=== PATIENT | male | born 1960 | race Caucasian/White ===

== ENCOUNTER 2019-03-07 04:52 | Inpatient (IN) ==
--- NOTE | 2019-02-01 16:16 | PAT Medication Instructions ---
Medication Instructions Date of Service February 01, 2019 Home Medications garlic 1,000 mg PO DAILY 01/29/19 [History Confirmed 01/29/19] glucosamine-chondroitin [Osteo Bi-Flex] 1 tab PO DAILY 01/29/19 [History Confirmed 01/29/19] milk thistle 500 mg PO DAILY 01/29/19 [History Confirmed 01/29/19] multivitamin 1 tab PO DAILY 01/29/19 [History Confirmed 01/29/19] omega 6-zcy-zbo-fish oil [[place]-3] 1 cap PO DAILY 01/29/19 [History Confirmed 01/29/19] prednisone 5 mg PO UD 01/29/19 [History Confirmed 01/29/19] pseudoephedrine HCl [Sudafed] 30 mg PO DAILY 01/29/19 [History Confirmed 01/29/19] zinc 50 mg PO DAILY 01/29/19 [History Confirmed 01/29/19] Continue as directed prednisone 5 mg PO UD 01/29/19 [History Confirmed 01/29/19] STOP taking 2 weeks before surgery (or as soon as possible if surgery is within 2 weeks) garlic 1,000 mg PO DAILY 01/29/19 [History Confirmed 01/29/19] glucosamine-chondroitin [Osteo Bi-Flex] 1 tab PO DAILY 01/29/19 [History Confirmed 01/29/19] milk thistle 500 mg PO DAILY 01/29/19 [History Confirmed 01/29/19] omega 2-sjd-fbq-fish oil [[place]-3] 1 cap PO DAILY 01/29/19 [History Confirmed 01/29/19] DO NOT take the morning of surgery multivitamin 1 tab PO DAILY 01/29/19 [History Confirmed 01/29/19] pseudoephedrine HCl [Sudafed] 30 mg PO DAILY 01/29/19 [History Confirmed 01/29/19] zinc 50 mg PO DAILY 01/29/19 [History Confirmed 01/29/19] Other Notes If you have any questions please call us at [phone] or [phone] or [phone] or [phone]
--- NOTE | 2019-02-04 13:38 | Anesthesiology Consultation ---
Date of Service February 04, 2019 Assessment & Plan (1) Encounter for pre-operative examination: - Awaiting review preop testing (labs, EKG, CXR). - Awaiting surgeon-ordered PCP preop evaluation scheduled ~02/06 (Dr. Roberts). Chart Review Chart Review: Patient seen in Pre Admission Testing Teaching & Discussion Pre-Anesthesia Teaching/Discussion Notes: Instructed NPO after midnight before surgery,except medications with 15 cc of water. Medication instructions provided according to the PAT guidelines. History Surgery Operation Date: 03/07/19 07:15 Proposed Procedures p Left Shoulder Arthrosurface Total Arthroplasty, Hardware Removal, Left Shoulder Excision of Ganglion Cyst - Lino Tolentino MD Height/Weight Height: 6 ft 3 in Weight: 90.4 kg Allergies Allergy/AdvReac Type Severity Reaction Status Date / Time No Known Allergies Allergy Verified 01/29/19 08:02 Medications Home Medications Medication Instructions Recorded Confirmed Last Taken garlic 1,000 mg PO DAILY 01/29/19 01/29/19 Unknown glucosamine-chondroitin [Osteo 1 tab PO DAILY 01/29/19 01/29/19 Unknown Bi-Flex] milk thistle 500 mg PO DAILY 01/29/19 01/29/19 Unknown multivitamin 1 tab PO DAILY 01/29/19 01/29/19 Unknown omega 0-pgm-kgg-fish oil [[place]am-3] 1 cap PO DAILY 01/29/19 01/29/19 Unknown pseudoephedrine HCl [Sudafed] 30 mg PO DAILY 01/29/19 01/29/19 Unknown zinc 50 mg PO DAILY 01/29/19 01/29/19 Unknown Past Medical History Medical History GERD (gastroesophageal reflux disease) controlled Osteoarthritis Exercise / Class Metabolic Activity II 4-5 Yardwork/Stairs/Walk up hill Past Family History Family History Other No significant family history Past Surgical History Surgical History History of colonoscopy History of esophagogastroduodenoscopy (EGD) History of open reduction and internal fixation (ORIF) procedure RT WRIST History of tonsillectomy and adenoidectomy History of tooth extraction Hx of knee surgery LEFT Hx of shoulder surgery LEFT Past Anesthesia History No Hx of Anesthesia Complications and No Family Hx of Anesthesia Complications History of PONV No Hx of PONV and No Hx of Motion Sickness Social History Smoking Status: Current some day smoker tobacco type: cigars Smoking cigarettes per day: OCCASIONAL CIGARS Do You Dip or Chew Tobacco: No Hx Alcohol Use: Yes Alcohol type: beer and wine alcohol intake frequency: a few times a week Hx Substance Use: No substance use type: does not use Review of Systems URI symptoms significant improved s/p cough suppressant/prednisone (prednisone to be completed 02/05/19).* Reflux controlled. Patient denies chest pain, shortness of breath, dyspnea on exertion, wheezing, palpitations. Physical Exam Vital Signs VITALS BP 158/89- Patient advised to followup with PCP regarding elevated BP. P 82 TEMP 97.9 SP02 96%RA RESP 18 PHYSICAL Full neck and c-spine range of motion. Full TMJ range of motion. TMD 3.5 finger breaths Mallampati Score 1 Dentition: missing molar Lungs: clear throughout to auscultation Cardiac: regular rate and rhythm, no murmurs noted Spine: normal Carotid arteries: negative bruit Extremities: no edema
--- NOTE | 2019-02-04 14:26 | XRay Report ---
XR chest Pre-admission PA/Lat CLINICAL HISTORY: Preoperative chest COMPARISON STUDY: March 2015 FINDINGS: There is mild tortuosity/ectasia of the ascending thoracic aorta. There is no failure. Ther e is no focal pulmonary consolidation. There are no pleural effusions. There is a linear band of subs egmental atelectasis/scarring at the left lung base. Postsurgical changes involve the left scapula.[ IMPRESSION: No active disease in the chest. Electronically signed by: Dean Roman M.D. 02/04/2019 2:24 PM
[2019-02-04 14:35] LABS: Basophils # (auto) 0.02 K/uL (0-0.2); Basophils % (auto) 0.3 %; Eosinophils # (auto) 0.02 K/uL (0-0.5); Eosinophils % (auto) 0.3 %; Hematocrit (blood only) 44.9 % (42-52); Hemoglobin 16.3 g/dL (14.0-18.0); Immature Granulocytes # (auto) 0.02 K/uL (0.00-0.02); Immature Granulocytes % (auto) 0.3 %; Lymphocytes # (auto) 1.19 K/uL (1.2-3.4); Lymphocytes % (auto) 14.9 %; Mean Corpuscular Hemoglobin 35.5 pg (25-34); Mean Corpuscular Hgb Conc 36.3 g/dL (32-36); Mean Corpuscular Volume 97.8 fL (80-100); Mean Platelet Volume 10.2 fL (7.4-10.4); Monocytes # (auto) 0.33 K/uL (0.11-0.59); Monocytes % (auto) 4.1 %; Neutrophils # (auto) 6.38 K/uL (1.4-6.5); Neutrophils % (auto) 80.1 %; Platelet Count 270 K/uL (130-400); RDW Coefficient of Variation 12.6 % (11.5-14.5); RDW Standard Deviation 44.8 fL (36.4-46.3); Red Blood Count 4.59 M/uL (4.7-6.1); White Blood Count 7.96 K/uL (4.8-10.8)
[2019-02-04 14:47] LABS: Appearance Urine Clear (Clear); Bilirubin Urine Negative (Negative); Blood Urine Negative (Negative); Color Urine Yellow; Glucose Urine UA Negative (Negative); Ketones Urine Negative (Negative); Leukocyte Esterase Urine Negative (Negative); Nitrite Urine Negative (Negative); Protein Urine Negative (Negative); Specific Gravity Urine 1.011 (1.000-1.030); Urobilinogen Urine Negative (Negative); pH Urine 6.5 (4.5-7.5)
[2019-02-04 14:55] LABS: Partial Thromboplastin Time 25.9 Seconds (21.0-31.0); Prothrombin Time 10.1 Seconds (9.0-12.0)
[2019-02-04 15:00] LABS: Estimated Average Glucose 114 mg/dl; Hemoglobin A1C 5.6 % (4.5-5.6)
[2019-02-04 15:19] LABS: Albumin Level 3.9 gm/dl (3.4-5.0); BUN Creatinine Ratio 13.3 (10-20); Calcium 9.4 mg/dl (8.5-10.1); Creatinine Clr Calc Pharmacy 102.7 ml/min; Potassium 4.3 mmol/L (3.5-5.1)
--- NOTE | 2019-03-06 20:50 | History and Physical Report ---
DATE OF ADMISSION: 03/07/2019 CHIEF COMPLAINT: Chronic left shoulder pain. HISTORY OF PRESENT ILLNESS: This is a 58-year-old male patient of Dr. Tolentino'jagdeep complaining of chronic left shoulder pain, longstanding now for approximately 8 years. The patient has failed conservative treatment including injections, bqkb-qky-alncucs anti-inflammatories and directed home exercise program. The patient had an MRI and has been diagnosed with end-stage osteoarthritis in his left shoulder. The patient wishes to proceed with a left total shoulder arthroplasty with Arthrosurface, removal of hardware and removal of ganglion cyst. PAST MEDICAL HISTORY: Osteoarthritis, otherwise a healthy 58-year-old male. SOCIAL HISTORY: Three cigars per day, social drinker. PAST SURGICAL HISTORY: Left shoulder, wrist and knee. FAMILY HISTORY: Noncontributory. REVIEW OF SYSTEMS: Chronic left shoulder pain and weakness. Otherwise, denies any shortness of breath, chest pain, nausea, vomiting or any other joint complaints. MEDICATIONS: Multivitamin daily, omega-3 daily, fiber daily, OptiFlex-C daily, milk thistle daily, garlic daily, zinc daily, Sudafed 30 mg 2 tablets every 6 hours as needed. ALLERGIES: No known drug allergies. PHYSICAL EXAMINATION: GENERAL: Well-developed, well-nourished 58-year-old male in no acute distress. He is alert and oriented x3 and pleasant. HEENT: Normocephalic, atraumatic. Extraocular motions are intact. Pupils are equal and reactive to light. HEART: Regular rate and rhythm, no murmurs. LUNGS: Clear. ABDOMEN: Soft, nontender, bowel sounds present. EXTREMITIES: Left shoulder reveals positive apprehension maneuvering. He has a limited range of motion of 0-170 with pain. He has 5/5 strength with pain and crepitation. NEUROLOGIC: Neurovascularly, he is intact in his left upper extremity. DIAGNOSES: Left shoulder end-stage osteoarthritis, otherwise a healthy 58-year-old male. PLAN: The patient was advised of his diagnosis. Indications, risks, benefits, postop course have all been reviewed. The patient wished to proceed with a left total shoulder arthroplasty with Arthrosurface placement, ganglion cyst removal and removal of hardware. Necessary consent forms, preoperative testing and clearances will be obtained.
[2019-03-07] MEDS ORDERED: LR 15ML/HR IV SCH (06:00)
[2019-03-07] MEDS ORDERED: CeleBREX 200 MG CAP PO SCH (06:00)
[2019-03-07] MEDS ORDERED: ACETAMINOPHEN 500 MG TAB PO SCH (06:00)
[2019-03-07] MEDS ORDERED: GABAPENTIN 600 MG DOSE PO SCH (06:00)
[2019-03-07] MEDS ORDERED: CEFAZOLIN 2000MG 2,000 MG/15 ML SYR IV SCH (06:00)
[2019-03-07] MEDS ORDERED: METOCLOPRAMIDE HCL 10 MG TABLET PO SCH (06:00)
[2019-03-07] MEDS ORDERED: FAMOTIDINE 20 MG TAB PO SCH (06:00)
[2019-03-07] MEDS ORDERED: dexAMETHasone 4 MG TAB PO SCH (06:00)
[2019-03-07] MEDS ORDERED: DEXAMETHASONE SOD INJ 4 MG/ML VIAL ONE ×2 (06:23→06:27)
[2019-03-07] MEDS ORDERED: ROCURONIUM BROMIDE 10 MG/ML 5 ML VIAL ONE ×2 (06:23→09:39)
[2019-03-07] MEDS ORDERED: PROPOFOL IV EMULSION 10 MG/ML 20 ML VIAL IV ONE ×2 (06:23→10:42)
[2019-03-07] MEDS ORDERED: ONDANSETRON INJ 2 MG/ML 2 ML VIAL ONE ×2 (06:23→10:48)
[2019-03-07] MEDS ORDERED: LIDOCAINE HCL 2% 2 ML VIAL/AMP(20MG/ML) INFIL ONE (06:23)
[2019-03-07] MEDS ORDERED: MIDAZOLAM HCL 1 MG/ML 2ML VIAL ONE ×2 (06:23→07:12)
[2019-03-07] MEDS ORDERED: fentaNYL citrate 100 MCG/2 ML VIAL ONE ×2 (06:24→07:12)
[2019-03-07] MEDS ORDERED: ROPIVACAINE 0.5% 5 MG/ML 30 ML VIAL ONE (06:27)
[2019-03-07] MEDS ORDERED: BACITRACIN INJ 50,000 UNIT VIAL ONE (06:55)
[2019-03-07] MEDS ORDERED: EPINEPHrine HCL INJ 1 MG/ML 30ML ONE (06:55)
[2019-03-07] MEDS ORDERED: fentaNYL citrate 100 MCG/2 ML VIAL IV PRN (06:58)
[2019-03-07] MEDS ORDERED: HYDROmorphone INJ 2 MG/ML SYR/VIAL IV PRN (06:58)
[2019-03-07] MEDS ORDERED: ATROPINE SULFATE 0.1 MG/ML 10ML SYR IV PRN (06:58)
[2019-03-07] MEDS ORDERED: ePHEDrine sulfate 50 MG/ML AMP IV PRN (06:58)
--- NOTE | 2019-03-07 07:02 | History & Physical Bridge Note ---
Date of Service March 07, 2019 History & Physical Bridge Note I have examined the patient, reviewed the History & Physical and in the interval since the performance of the History & Physical I have noted the following changes of clinical significance: no changes noted
[2019-03-07] MEDS ORDERED: EpINEphrine HCL INJ 1 MG/ML 1ML SYRINGE ONE (07:37)
[2019-03-07] MEDS ORDERED: PHENYLEPHRINE 100MCG/ML 5ML SYR ONE (09:40)
[2019-03-07] MEDS ORDERED: NEOSTIGMINE METHYLSULFATE 5 MG/5 ML SYR ONE (10:13)
[2019-03-07] MEDS ORDERED: GLYCOPYRROLATE 0.2 MG/ML VIAL ONE (10:13)
[2019-03-07] MEDS ORDERED: ESMOLOL HCL INJ 10 MG/ML 10ML VIAL IV ONE (10:58)
--- NOTE | 2019-03-07 11:04 | Post Operative Brief Note ---
Immediate Post Op Note v1 Date of Surgery March 07, 2019 Pre & Post Diagnosis Operation Date: 03/07/19 07:00 Pre-Op Diagnosis: Left Shoulder: End-Stage glenohumeral osteoarthritis and para labral ganglion cyst glenoid labral tear history of [place] procedure Post-Op Diagnosis: Same with biceps tenosynovitis loose body biceps tendon sheath I identified the patient and participated in the time-out.: Yes Procedure Operation Date: 03/07/19 07:00 Actual Procedures p Left Shoulder: Arthrosurface Total Arthroplasty (Cemented) with Hardware Removal, Labrum Debridement and Biceps Tenodesis excision loose body- Lino Tolentino MD Surgeon Lino Tolentino MD Ethnic Studies Professor Noman Ogden DO and ZAINAB Arceo Estimated Blood Loss 40 Findings Consistent with Post-Op Diagnosis Specimens None Drains Hemovac Drain Anesthesia Type General Regional Complications none Disposition Accompanied Patient To Recovery: No Disposition: Recovery Room Overlapping Procedure I was present for: the critical portions of procedure.
--- NOTE | 2019-03-07 11:33 | XRay Report ---
XR shoulder LT min 2V routine CLINICAL HISTORY: 59 years-old Male presenting with Post shoulder surgery. TECHNIQUE: Frontal and lateral views of the left shoulder were obtained. COMPARISON: Correlation made to chest x-ray from 02/04/2019. FINDINGS: There has been interval left shoulder arthroplasty. Expected soft tissue emphysema and overlying skin agusto. Removal of the prior screw fixation of the glenoid. No malalignment. No periprosthetic frac ture. Surgical drain in place. IMPRESSION: Expected postsurgical changes status post left shoulder arthroplasty. Electronically signed by: Donte Sifuentes M.D. 03/07/2019 11:32 AM
[2019-03-07] MEDS ORDERED: bisacodyL 10 MG SUPP PR PRN (12:19)
[2019-03-07] MEDS ORDERED: MAGNESIUM HYDROXIDE SUSP 30 ML UDC PO PRN (12:19)
[2019-03-07] MEDS ORDERED: HYDROmorphone INJ 0.5 MG/0.5 ML SYR IV PRN (12:19)
[2019-03-07] MEDS ORDERED: NALOXONE HCL 0.4 MG/1 ML VIAL/CARP IV PRN (12:19)
[2019-03-07] MEDS ORDERED: ONDANSETRON INJ 2 MG/ML 2 ML VIAL IV PRN (12:19)
[2019-03-07] MEDS: SODIUM CHLORIDE 0.9% 1000ML 1,000 ML IV SCH ×2 (12:33→21:47)
[2019-03-07] MEDS: ACETAMINOPHEN 500 MG TAB PO SCH ×2 (13:07→21:38)
--- NOTE | 2019-03-07 13:30 | Consultation ---
Date of Consultation March 07, 2019 Assessment & Plan (1) Status post total shoulder arthroplasty: Post op day# 0 S/P Left Shoulder Arthroplasty by Dr Tolentino EBL# 40ml Post op doing well -pain management per ortho -wound management per ortho -PT/OT as appropriate -DVT prophylaxis per ortho -incentive spirometry -monitor H&H for acute blood loss anemia; Pre-op Hgb: 16 (2) Elevated blood pressure reading: No hx HTN Post op BP 163/98 -Monitor BP -Pain management DVT Prophylaxis -SCDs Follows with Dr Roberts for routine care Pt was seen and care coordinated with Dr Elias. See addendum Pt will be followed by Dr Vyas starting 03/08/19. Thank you for this consultation. We will follow the patient with you during their hospital stay. You can reach a member of the [facility] via pager @ [phone]. Supervising Physician Co-Signing Physician Notes Patient is a 59-year-old male with no significant past medical history was seen and examined postop after having left shoulder arthroplasty by . Patient is doing well postop. Currently denies any incisional pain. His blood pressure is slightly elevated but is asymptomatic. Denies any chest pain, shortness of breath, dizziness, nausea, abdominal pain. On exam patient is well-built and nourished, no apparent distress, normocephalic atraumatic, lungs are clear to auscultation, S1-S2, no murmur, abdomen soft nontender, left shoulder in sling, + drain, grossly no focal neurologic deficits. Patient is consulted for postop medical management. Monitor for postop anemia. Elevated blood pressure likely situational. Monitor blood pressure closely. Consider starting on antihypertensives if blood pressure remains elevated. On aspirin 81 mg twice daily for DVT prophylaxis as per Ortho. Continue bowel regimen to prevent constipation. Activity as per Ortho. I personally reviewed the record. Patient is interviewed and examined at bedside. Patient's care is coordinated with Sharla Holbrook PA-C. Please refer to the documentation above for details of patient's presentation and for discussion of other issues. History of Present Illness Reason for Consultation: Post op medical management Attending Physician: Lino Tolentino MD History of Present Illness Pt is 59 y/o M with PMH GERD seen in post op medical consult s/p left shoulder arthroplasty by Dr Tolentino. Post op pt reports doing well. Pain controlled and still with numbness/tingling sensation of left hand and fingers. Drinking fluids without difficulty. Denies N/V. Denies fever/chills, diaphoresis, LOTT, dizziness, syncope, vision changes, neck pain, CP, SOB, palpitations, cough, sore throat, rhinorrhea, abdominal pain, extremity edema, rashes, urinary symptoms. Allergies Allergy/AdvReac Type Severity Reaction Status Date / Time No Known Allergies Allergy Verified 03/07/19 05:23 Home Medications Home Medications Medication Instructions Recorded Confirmed Type garlic 1,000 mg PO DAILY 01/29/19 03/07/19 History glucosamine-chondroitin [Osteo 1 tab PO DAILY 01/29/19 03/07/19 History Bi-Flex] milk thistle 500 mg PO DAILY 01/29/19 03/07/19 History multivitamin 1 tab PO DAILY 01/29/19 03/07/19 History omega 9-otz-bby-fish oil [[place]-3] 1 cap PO DAILY 01/29/19 03/07/19 History pseudoephedrine HCl [Sudafed] 30 mg PO DAILY 01/29/19 03/07/19 History zinc 50 mg PO DAILY 01/29/19 03/07/19 History Patient History Medical History (Updated 03/07/19 @ 13:44 by Sharla Holbrook PA-C) GERD (gastroesophageal reflux disease) controlled Osteoarthritis Surgical History (Updated 03/07/19 @ 13:42 by Sharla Holbrook PA-C) History of colonoscopy History of esophagogastroduodenoscopy (EGD) History of open reduction and internal fixation (ORIF) procedure RT WRIST History of tonsillectomy and adenoidectomy History of tooth extraction Hx of knee surgery LEFT Hx of shoulder surgery LEFT Status post total shoulder arthroplasty 03/07/19 - Dr Tolentino Family History (Updated 03/07/19 @ 13:33 by Sharla Holbrook PA-C) Other Asthma Social History Preferred Language: Chinese Communication Ability: Effective Adjunct Instructor Chemistry Required: No Beliefs That Will Affect Care: None Current Living Situation: Spouse Other Information That Helps Us Care for You: No Feels Safe at Home: Yes Safety Concerns: Feels Safe At This Time Smoking Status: Current some day smoker Tobacco Type: cigars ; Cigarettes Per Day: OCCASIONAL CIGARS ; Do You Dip or Chew Tobacco: No ; Second Hand Exposure: No ; Tobacco Cessation Education Requested by Patient: No Hx Alcohol Use: Yes Alcohol type: beer and wine Hx Substance Use: No Review of Systems Review of Systems: All systems reviewed & are unremarkable except as noted in HPI & below Physical Exam Physical Exam: General: no distress, WDWN Head: normocephalic, atraumatic Eyes: PERRL, EOM's intact, conjunctiva non-injected, anicteric ENT: normal inspection external ears, nose, mucous membranes moist Neck: supple, trachea midline Lungs: clear, no respiratory distress, no wheezing/rhonchi/rales CV: RRR, no murmur, no pretibial edema Abd: normal BS, soft, non-tender Ext: no cyanosis, no calf tenderness; Left shoulder in sling, able to wiggle left fingers, brisk capillary refill of fingers and sensation to light touch intact, distal pulses intact. +drain with serosanguineous drainage Neuro: A&O x 3, no focal deficits noted, normal affect Skin: warm, dry Results & Data Vital Signs (Past 12 Hours) Vital Signs Temp Pulse Pulse Resp BP Pulse Ox 03/07/19 13:04 36.9 C 76 16 163/98 H 98 03/07/19 12:32 36.9 C 76 18 151/96 H 97 03/07/19 12:23 36.6 C 75 16 155/87 H 96 03/07/19 11:55 86 18 143/87 H 95 03/07/19 11:45 36.7 C 78 16 130/85 97 03/07/19 11:35 75 15 142/82 H 96 03/07/19 11:25 89 16 143/84 H 96 03/07/19 11:15 86 16 149/92 H 95 03/07/19 11:07 36.0 C L 87 16 152/99 H 98 03/07/19 05:47 36.8 C 80 16 147/104 H 96 Diagnostic Findings L Shoulder XRAY: IMPRESSION: Expected postsurgical changes status post left shoulder arthroplasty.
[2019-03-07] MEDS: CEFAZOLIN 2000MG 2,000 MG/15 ML SYR IV SCH ×2 (14:09→22:37)
--- NOTE | 2019-03-07 14:26 | Anesthesiology Progress Note ---
Date of Service March 07, 2019 Anesthesia Post Procedure Vital Signs Vital Signs: Temp Pulse Pulse Resp BP Pulse Ox 03/07/19 14:08 36.9 C 74 16 157/85 H 98 03/07/19 13:04 36.9 C 76 16 163/98 H 98 03/07/19 12:32 36.9 C 76 18 151/96 H 97 03/07/19 12:23 36.6 C 75 16 155/87 H 96 03/07/19 11:55 86 18 143/87 H 95 03/07/19 11:45 36.7 C 78 16 130/85 97 03/07/19 11:35 75 15 142/82 H 96 03/07/19 11:25 89 16 143/84 H 96 03/07/19 11:15 86 16 149/92 H 95 03/07/19 11:07 36.0 C L 87 16 152/99 H 98 03/07/19 05:47 36.8 C 80 16 147/104 H 96 Transfer of Care Handoff Completed per policy Notes Mental Status: alert / awake / arousable and participated in evaluation Patient Amnestic to Procedure: Yes Nausea / Vomiting: adequately controlled Pain: adequately controlled Airway Patency, RR, SpO2: stable & adequate BP & HR: stable & adequate Hydration State: stable & adequate Anesthetic Complications: no major complications apparent
[2019-03-07] MEDS: ASPIRIN 81 MG ECTAB PO SCH (20:09)
[2019-03-07] MEDS: DOCUSATE SODIUM 100 MG CAP PO SCH (20:09)
[2019-03-07] MEDS ORDERED: SENNA 8.6 MG TAB PO SCH (21:00)
--- NOTE | 2019-03-08 00:21 | Operative Report ---
DATE OF OPERATION: 03/07/2019 INDICATION FOR PROCEDURE: The patient is a 59-year-old male who has a long-term history of chronic left shoulder pain. He had a history of Bells type procedure years ago. He developed chronic pain, stiffness and decreased mobility of his left shoulder over the years. Radiographs demonstrate that he has end-stage osteoarthritis. He is [id number] in the glenohumeral joint on axillary view. He has osteoarthritis. He has a screw fixation from Verna procedure and has a displaced washer that displaced distally. He still has an intact rotator cuff with MRI. He has some paralabral cysts, likely associated with a posterior superior labral tear, but has advanced [id number] glenohumeral degenerative joint disease. PREOPERATIVE DIAGNOSES: Left shoulder osteoarthritis, glenohumeral joint with glenoid labral tear, paralabral ganglion cysts, retained hardware, status post Bells procedure with displaced washer. POSTOPERATIVE DIAGNOSES: Left shoulder osteoarthritis, glenohumeral joint with glenoid labral tear, paralabral ganglion cysts, retained hardware, status post Verna procedure with displaced washer including biceps tenosynovitis and glenoid labral tear, degenerative in nature. PROCEDURES: Left total shoulder arthroplasty using OVOMotion Arthrosurface shoulder replacement including an inlay glenoid component. With biceps tenodesis and labral debridement including removal of deep hardware including washer and screw removal. SURGEONS: Lino Tolentino and Donte Ogden MD GEOSPATIAL INTELLIGENCE ANALYST: Jose Alvarez PA-C ANESTHESIA: Regional block and general. DRAINS: Two Hemovac. ESTIMATED BLOOD LOSS: 40 mL. SPECIMENS: None. OPERATIVE PROCEDURE: The patient was taken to the Operating Room, anesthetized under regional block, general anesthetic. He was positioned on the Operating Room table. A towel roll under the medial border of his left scapula. He was translated to the left side of bed, so his shoulder could be manipulated off the bed as necessary. His head was placed on a foam headrest. He had protective eyewear placed. He had sequential compression devices placed and thromboembolic deterrent stockings. His left shoulder and upper extremity were prepped and draped in usual sterile fashion. Examination demonstrated he had forward elevation to 170 degrees, external rotation to about 80 degrees, internal rotation similar with combined abduction, external rotation. Anterior load shift test of his shoulder did not appear to be unstable at all, appeared to have a stable endpoint there. His shoulder had an old scar from prior surgery. I approached the left shoulder via longitudinal deltopectoral approach. We went lateral to the prior incision, which was down toward the axilla. The skin was incised sharply. Subcutaneous tissues were dissected down to the fascia. Subcutaneous flaps were elevated. The cephalic vein was dissected out and retracted laterally with the deltoid. Pectoralis was retracted medially. There was well defined falciform ligament which was released with about a centimeter of the pectoralis being released to get some inferior exposure. The conjoined tendon was transferred with a Bells type procedure but there was a palpable coracoid and CA ligament was still intact. The scar tissue over the rotator cuff was resected and the subscapularis and supraspinatus were both intact. There was tenosynovitis in the biceps tendon and the synovium and the biceps sheath was resected. Biceps sheath was opened up into the rotator interval. The rotator interval was opened up down to the glenoid. The circumflex vessels were not identified and may have been ligated on previous surgery. The washer was identified distally in line with the transferred conjoined tendon there appeared to be a piece of bone with it that so some failure of the washer occurred possibly with fragmentation of the tip of the coracoid piece potentially. The washer was resected. Attention was then taken to exposing the shoulder joint. A transtendinous incision was made leaving about 1 cm to 1.5 cm of a cuff of tissue on the lesser tuberosity. We incised down longitudinally through the subscapularis tendon leaving some of the lower fibers of the muscle still intact. The incision was carried through the capsule and then the capsule was released off the inferior neck of the humerus as we gradually externally rotated the humerus. A traction suture was placed in the subscapularis. The blunt Hohmann retractor was placed to protect the axillary nerve. The large inferior and posterior humeral osteophytes were resected with a large chisel. Patrick elevator was used to reflect some of the capsule off the neck inferiorly so we had released off the neck. I used the Arthrosurface OVOMotion total shoulder replacement system. The measuring guide was used on the head and the best size was felt to be a 56 superior inferior and 52 anterior posterior diameter humeral head. Appropriate guide was placed for the central drill hole followed by the appropriate reamer and flat head reamer. All the excess bone was irrigated out and removed using osteotomes, rongeur and irrigation. The humeral head was then retracted posterior to the glenoid. The glenoid had posterior two-thirds was completely eburnated bone slightly slow posteriorly. Anteriorly, there still was articular cartilage. Anteriorly, there was a large transferred piece of bone which was slightly more anterior than the articular surface. This piece of bone was left alone and that has added anterior stability to the shoulder. The screw was identified. A small piece of the bone was trimmed off, so we could see the head of the screw and the screw was removed with TwitJump universal screwdriver device. At this time, minor anterior capsular release was performed to get appropriate retractors and exposure and a Fukuda-type retractor was placed to retract the humerus posteriorly. The guides for the inlay glenoid were placed and because of the very large glenoid, we chose to use a snowman-type inlay glenoid component. The guidewires were placed through the guide and the reamers were used appropriately and the drill holes for the cemented pegs were placed and multiple drill holes were made into the base of the reamed inlay prepared bone to enhance cement fixation. The trial was placed and it fit appropriately and then the wound was copiously irrigated with pulsatile lavage and antibiotic solution with bacitracin and the glenoid was packed with epinephrine soaked sponges and dry sponge on top. Then, the cement was vacuum mixed. Then, 20 x 25 inlay glenoid component was cemented into position after pressurizing the cement 3 times. All excess cement was cleared and the glenoid component was held in place until the cement hardened. Then, attention was taken back to the final preparation. The trial head was placed followed by the reamer for the post and 12 mm post was placed at the appropriate depth and then 56 x 52 OVOMotion Arthrosurface humeral head was impacted onto the post with stable fixation with Patrick elevator. The humerus reduced to the glenoid. Shoulder was stable. The wound was copiously irrigated. The subscapularis was repaired with dual-row fixation with 5.5 Healicoil anchors medially and 5.5 footprint anchors laterally which were placed in the bicipital groove. We did repair the bicipital groove down the bone prior to placing the footprint anchors. The medial row fixation was horizontal mattress sutures through the subscapularis and 4 tails were placed in each footprint anchor laterally. The rotator interval was closed with [id number] #2 FiberWire and then the biceps was laid down in the groove and sutures from the footprint anchors were passed through the biceps with whipstitches in simple sutures to securely fix the biceps tendon in the groove at an anatomic length. The pectoralis was repaired with [id number] #2 FiberWire sutures. After further irrigation, 2 Hemovac drains were placed. Deltopectoral interval was repaired with [id number]-ja-[id number] #1 Vicryl sutures. Subcutaneous tissue was closed with interrupted 2-0 Vicryl sutures and skin closed with agusto. Sterile dressings were applied and a sling immobilizer. Dr. Ogden was primary surgical first assistant surgeon in the procedure and secondary players assistant was ZANIAB Arceo. Dr. Ogden was present and assisted throughout the majority of the procedure, the soft tissue retraction was performed by ZAINAB Arceo, who closed the subcutaneous and skin and placed appropriate dressings and sling immobilizer in place and will participate in postoperative care of the patient. I attest to the content of the Intraoperative Record and any orders documented therein. Any exceptions are noted below. SINDI
[2019-03-08] MEDS: ACETAMINOPHEN 500 MG TAB PO SCH ×2 (06:00→13:12)
[2019-03-08 06:28] LABS: Basophils # (auto) 0.01 K/uL (0-0.2); Basophils % (auto) 0.1 %; Eosinophils # (auto) 0.01 K/uL (0-0.5); Eosinophils % (auto) 0.1 %; Hematocrit (blood only) 38.8 % (42-52); Hemoglobin 13.2 g/dL (14.0-18.0); Immature Granulocytes # (auto) 0.01 K/uL (0.00-0.02); Immature Granulocytes % (auto) 0.1 %; Lymphocytes # (auto) 1.83 K/uL (1.2-3.4); Lymphocytes % (auto) 17.8 %; Mean Corpuscular Hemoglobin 33.8 pg (25-34); Mean Corpuscular Volume 99.2 fL (80-100); Mean Platelet Volume 10.4 fL (7.4-10.4); Monocytes # (auto) 1.02 K/uL (0.11-0.59); Monocytes % (auto) 9.9 %; Neutrophils # (auto) 7.39 K/uL (1.4-6.5); Platelet Count 220 K/uL (130-400); RDW Coefficient of Variation 12.1 % (11.5-14.5); RDW Standard Deviation 43.6 fL (36.4-46.3); Red Blood Count 3.91 M/uL (4.7-6.1); White Blood Count 10.27 K/uL (4.8-10.8)
[2019-03-08 07:00] LABS: BUN Creatinine Ratio 11.1 (10-20); Calcium 8.2 mg/dl (8.5-10.1); Est GFR (African American) 97.6; Est GFR (Non-African American) 84.2
[2019-03-08] MEDS: OXYCODONE HCL IR 5 MG TAB (IMMEDIATE RELEASE) PO PRN ×2 (07:49→13:11)
[2019-03-08] MEDS: DOCUSATE SODIUM 100 MG CAP PO SCH (07:50)
[2019-03-08] MEDS: ASPIRIN 81 MG ECTAB PO SCH (07:50)
--- NOTE | 2019-03-08 07:58 | Anesthesiology Progress Note ---
Date of Service March 08, 2019 Anesthesia Post Procedure Vital Signs Vital Signs: Temp Pulse Pulse Resp BP Pulse Ox 03/08/19 02:25 36.6 C 82 16 147/86 H 96 03/07/19 22:50 36.7 C 65 16 142/84 H 96 03/07/19 20:08 36.6 C 84 24 156/75 H 97 03/07/19 15:07 36.4 C L 75 18 150/88 H 98 03/07/19 14:08 36.9 C 74 16 157/85 H 98 03/07/19 13:04 36.9 C 76 16 163/98 H 98 03/07/19 12:32 36.9 C 76 18 151/96 H 97 03/07/19 12:23 36.6 C 75 16 155/87 H 96 03/07/19 11:55 86 18 143/87 H 95 03/07/19 11:45 36.7 C 78 16 130/85 97 03/07/19 11:35 75 15 142/82 H 96 03/07/19 11:25 89 16 143/84 H 96 03/07/19 11:15 86 16 149/92 H 95 03/07/19 11:07 36.0 C L 87 16 152/99 H 98 Notes Mental Status: alert / awake / arousable and participated in evaluation Patient Amnestic to Procedure: Yes Nausea / Vomiting: adequately controlled Pain: adequately controlled Airway Patency, RR, SpO2: stable & adequate BP & HR: stable & adequate Hydration State: stable & adequate Anesthetic Complications: no major complications apparent and Pt Satisfied with anesthetic care
--- NOTE | 2019-03-08 08:11 | Orthopedic Progress Note ---
Date of Service March 08, 2019 Assessment & Plan (1) Status post total shoulder arthroplasty: POD #1, Left TSA, Removal HW. PT/ OT DVT proph ASA D/C planning- Home w OPPT today after lunch if pain controlled. Subjective POD #1, doing well. Denies SOB, CP, N/V. Pain controlled well. Wishes OPPT on D/C. Physical Exam Physical Exam: Left shoulder dressings c/d/i, no drainage. Fingers mobile. Sling in tact. A&Ox3. Results & Data Vital Signs (Past 12 Hours) Vital Signs Temp Pulse Pulse Resp BP Pulse Ox 03/08/19 07:40 36.7 C 77 12 148/64 H 98 03/08/19 02:25 36.6 C 82 16 147/86 H 96 03/07/19 22:50 36.7 C 65 16 142/84 H 96
[2019-03-08] MEDS ORDERED: MULTIVITAMIN TAB PO SCH ×2 (09:00)
[2019-03-08] MEDS ORDERED: NON-FORMULARY MEDICATION (Zinc 50 MG) PO SCH (09:00)
[2019-03-08] MEDS ORDERED: PSEUDOEPHEDRINE HCL 30 MG TAB PO SCH (09:00)
--- NOTE | 2019-03-08 09:11 | Hospitalist Progress Note ---
Date of Service March 08, 2019 Assessment & Plan (1) Status post total shoulder arthroplasty: Post op day# 1 S/P Left Shoulder Arthroplasty by Dr Tolentino EBL# 40ml; drain 286ml tolerated procedure well pain/wound management per ortho PT/OT as appropriate DVT prophylaxis per ortho incentive spirometry monitor H&H for acute blood loss anemia; Pre-op Hgb: 16,, H and H today 13.2 and 38.8 (2) Elevated blood pressure reading: No hx HTN or family history of hypertension Blood pressure readings have been elevated since admission Vitals flowsheet reviewed in outpatient setting revealed elevated blood pressure readings since September 2018. 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 See addendum Thank you for this consultation. We will follow the patient with you during their hospital stay. You can reach a member of the [facility] [place] [facility] Hospitalist Team 17/10 via pager @ [phone]. Supervising Physician Co-Signing Physician Notes Patient seen in his room around 0950. Care coordinated with Regla Browne PA-C. Doing well postoperatively. No chest pain, cough, SOB, nausea, vomiting. Pain fairly well-controlled. BP's fluctuating. General- no distress. Lungs- clear Heart- RRR Abd- + BS, soft, nontender Extr- LUE immbolized; no pretibial edema Labs: Hgb 13.2 A/P: S/P left shoulder arthroplasty, POD # 1. Doing well postop. Medical status stable. Fluctuating BP's probably secondary to perioperative pain- follow. Please refer to ZAINAB Browne's documentation for detailed discussion. Subjective Patient was seen and examined in room 312. Follow-up left total shoulder arthroplasty POD #[address] Tolentino. Overall he feels well this morning. Sitting up in bedside chair eating breakfast. "The nerve block is wearing off." Complains of 5/10 left shoulder pain. Did not sleep well last night. Denies fever, chills, sweats, lightheadedness, dizziness, chest pain, shortness of breath, nausea, vomiting. He is passing gas, but no bowel movement. Appetite is good. Review of Systems Review of Systems: All systems reviewed & are unremarkable except as noted in HPI & below Physical Exam Physical Exam: Gen: WD/WN, male, NAD, A&O x3 HEENT: Normocephalic, atraumatic, conjunctivae moist, sclerae anicteric, mucous membranes moist. Lung: Clear to Auscultation bilaterally, no wheezes/rales/rhonchi Heart: Regular rate, regular rhythm, no murmurs, rubs, or gallops Abdomen: Soft, NT, ND +BS x 4 Extremities: No edema, left shoulder dressing CDI, NVI distally Skin: Warm, no rash, negative turgor. Results & Data Vital Signs (Past 12 Hours) Vital Signs Temp Pulse Pulse Resp BP Pulse Ox 03/08/19 08:26 36.7 C 77 82 12 148/64 H 98 03/08/19 07:40 36.7 C 77 12 148/64 H 98 03/08/19 02:25 36.6 C 82 16 147/86 H 96 03/07/19 22:50 36.7 C 65 16 142/84 H 96 Laboratory Results Short CBC 03/08/19 Range/Units 05:57 WBC 10.27 (4.8-10.8) K/uL Hgb 13.2 L (14.0-18.0) g/dL Hct 38.8 L (42-52) % Plt Count 220 (130-400) K/uL BMP 03/08/19 05:57 Sodium 137 Potassium 4.0 Chloride 104 Carbon Dioxide 28 BUN 11 Creatinine 0.99 Glucose 105 H Calcium 8.2 L Medications Administered Acetaminophen (Tylenol) 1,000 mg PO Q8 WAYNE Stop: 04/06/19 13:59 Last Admin: 03/08/19 06:00 Dose: 1,000 mg Documented by: [id number] Admin: 03/07/19 21:38 Dose: 1,000 mg Documented by: [id number] Admin: 03/07/19 13:07 Dose: 1,000 mg Documented by: [id number] Aspirin (Ecotrin Ectab) 81 mg PO BID WAYNE Stop: 04/06/19 20:59 Last Admin: 03/08/19 07:50 Dose: 81 mg Documented by: [id number] Admin: 03/07/19 20:09 Dose: 81 mg Documented by: [id number] Diphenhydramine HCl (Benadryl Capsule) 25 mg PO Q8H PRN PRN Reason: Itching Stop: 04/06/19 12:18 Last Admin: 03/07/19 23:54 Dose: 25 mg Documented by: [id number] Docusate Sodium (Colace) 100 mg PO BID WAYNE Stop: 04/06/19 20:59 Last Admin: 03/08/19 07:50 Dose: 100 mg Documented by: [id number] Admin: 03/07/19 20:09 Dose: 100 mg Documented by: [id number] Multivitamins (Multivitamin Tab) 1 tab PO DAILY WAYNE Stop: 04/07/19 08:59 Last Admin: 03/08/19 07:50 Dose: 1 tab Documented by: [id number] Oxycodone HCl (Roxicodone Immediate Rel) 5 - 10 mg PO Q4H PRN PRN Reason: Pain Stop: 03/21/19 12:18 Last Admin: 03/08/19 07:49 Dose: 10 mg Documented by: [id number] Pseudoephedrine HCl (Suphedrine Sinus Congestion) 30 mg PO DAILY WAYNE Stop: 04/07/19 08:59 Last Admin: 03/08/19 07:50 Dose: 30 mg Documented by: [id number] Sennosides (Senokot) 17.2 mg PO HS WAYNE Stop: 04/06/19 20:59 Last Admin: 03/07/19 20:09 Dose: 17.2 mg Documented by: [id number] Discontinued Medications Acetaminophen (Tylenol) 1,000 mg PO PREOP WAYNE Stop: 03/07/19 18:00 Last Admin: 03/07/19 05:33 Dose: 1,000 mg Documented by: [id number] Bacitracin (Bacitracin) Confirm Administered Dose 50,000 units .ROUTE .STK-MED ONE Stop: 03/07/19 06:56 Last Admin: 03/07/19 07:59 Dose: 50,000 units Documented by: [id number] Celecoxib (Celebrex) 200 mg PO PREOP WAYNE Stop: 03/07/19 18:00 Last Admin: 03/07/19 05:33 Dose: 200 mg Documented by: [id number] Dexamethasone (Decadron) 8 mg PO PREOP WAYNE Stop: 03/07/19 18:00 Last Admin: 03/07/19 05:34 Dose: 8 mg Documented by: [id number] Epinephrine HCl (Adrenalin) Confirm Administered Dose 1 mg .ROUTE .STK-MED ONE Stop: 03/07/19 06:56 Last Admin: 03/07/19 07:58 Dose: Not Given Documented by: [id number] Epinephrine HCl (Epinephrine) Confirm Administered Dose 4 mg .ROUTE .STK-MED ONE Stop: 03/07/19 07:38 Last Admin: 03/07/19 10:13 Dose: 4 mg Documented by: [id number] Famotidine (Pepcid) 20 mg PO PREOP WAYNE Stop: 03/07/19 18:00 Last Admin: 03/07/19 05:34 Dose: 20 mg Documented by: [id number] Gabapentin (Neurontin) 600 mg PO PREOP WAYNE Stop: 03/07/19 18:00 Last Admin: 03/07/19 05:33 Dose: 600 mg Documented by: [id number] Lactated Ringer's (Lr) 1,000 mls @ 15 mls/hr IV .Q24H WAYNE Stop: 03/08/19 05:59 Last Infusion: 03/07/19 07:09 Dose: 0 mls/hr Documented by: [id number] Admin: 03/07/19 05:33 Dose: 15 mls/hr Documented by: [id number] Cefazolin Sodium (Ancef 2000mg) 2,000 mg in 15 mls @ 3.75 mls/min IV PREOP WAYNE; Protocol Stop: 03/07/19 18:00 Last Admin: 03/07/19 07:09 Dose: 3.75 mls/min Documented by: [id number] Cefazolin Sodium (Ancef 2000mg) 2,000 mg in 15 mls @ 3.75 mls/min IV Q8H WAYNE; Protocol Stop: 03/07/19 23:03 Last Admin: 03/07/19 22:37 Dose: 3.75 mls/min Documented by: [id number] Admin: 03/07/19 14:09 Dose: 3.75 mls/min Documented by: [id number] Sodium Chloride (Nss 1000ml) 1,000 mls @ 100 mls/hr IV .Q10H WAYNE Stop: 03/08/19 06:00 Last Infusion: 03/08/19 04:42 Dose: 0 mls/hr Documented by: [id number] Admin: 03/07/19 21:47 Dose: 100 mls/hr Documented by: [id number] Infusion: 03/07/19 21:47 Dose: 100 mls/hr Documented by: [id number] Admin: 03/07/19 12:33 Dose: 100 mls/hr Documented by: [id number] Metoclopramide HCl (Reglan) 10 mg PO PREOP WAYNE Stop: 03/07/19 18:00 Last Admin: 03/07/19 05:34 Dose: 10 mg Documented by: [id number]
== END 2019-03-08 14:28 | disposition home or self-care (01) | DRG 483 ==
LOC: ASU 04:52 → 3E 11:11